=== PATIENT | male | born 1965 | race Caucasian/White ===

== ENCOUNTER → 2018-11-01 | Day surgery (SDC) | payer OTHER ==
[~2018-11-01] VITALS: Ht 177.8 cm; Wt 96.6 kg
[~2018-11-01] MED LIST: CRESTOR10 MG PO; DEXAMETHASONE SOD PHOS INJ 4 MG/ML VIAL ONE; FENOFIBRATE134 MG PO; FENTANYL CITRATE/PF 100MCG/2 ML INJ ONE; IOPAMIDOL 610MG/1ML 300 MG/ML VIAL IV ONE; LIDOCAINE HCL 2% LOCAL INJ 5 ML SDV VIAL INJ ONE; METFORMIN HCL500 M2 PO; MIDAZOLAM HCL 2 MG/2 ML VIAL ONE; MORPHINE SULFATE 2 MG/ML SYR 1ML IV PRN; MORPHINE SULFATE 2 MG/ML SYR 1ML IV STA; MORPHINE SULFATE INJ 4 MG/ML INJ 1ML IV ONE; MORPHINE SULFATE INJ 4 MG/ML INJ 1ML IV PRN; ONDANSETRON HCL INJ 2MG/ML 2ML 2 MG/ML VIAL IV ONE; ONDANSETRON HCL INJ 2MG/ML 2ML 2 MG/ML VIAL IV PRN; ONDANSETRON HCL INJ 2MG/ML 2ML 2 MG/ML VIAL ONE; PROPOFOL IV EMULSION 10 MG/ML 20 ML VIAL ONE; SODIUM CHLORIDE 0.9% 1000ML 1,000 ML IV ONE
--- OUTSIDE RECORDS SUMMARY | 2018-11-01 14:31 | XMS REPORT | Summary of Care ---
Author Author [facility] Organization [facility] Address Unknown Phone Unavailable Encounter HQ Rubia(TONY) [id number] Date(s): 02/17/15 - 02/17/15 [facility] [address] [place] [address]- [phone] Discharge Disposition: Home Attending Physician: Tadeo Osborn MD Referring Physician: Tadeo Osborn MD Vital Signs 1 2 3 Most recent to oldest [Reference Range]: 177.8 cm (02/10/15 2:06 PM) Height 1 2 3 Most recent to oldest [Reference Range]: 98.1 DegF (02/10/15 2:06 PM) Temperature Oral [96.4-99.1 DegF] 1 2 3 Most recent to oldest [Reference Range]: 120/77 mmHg (02/17/15 3:45 PM) 119/77 mmHg (02/17/15 3:30 PM) 120/78 mmHg (02/17/15 3:15 PM) Blood Pressure [90-140/60-90 mmHg] 1 2 3 Most recent to oldest [Reference Range]: 18 BRMIN (02/17/15 3:45 PM) 18 BRMIN (02/17/15 3:30 PM) 18 BRMIN (02/17/15 3:15 PM) Respiratory Rate [14-20 BRMIN] 1 2 3 Most recent to oldest [Reference Range]: 79 bpm (02/10/15 2:06 PM) Peripheral Pulse Rate [60-100 bpm] 1 2 3 Most recent to oldest [Reference Range]: 102.415 kg (02/10/15 2:06 PM) Weight 1 2 3 Most recent to oldest [Reference Range]: 32.4 m2 (02/10/15 2:06 PM) Body Mass Index Problem List Condition Effective Dates Status Health Status Informant Diabetes(Confirmed) Active Hyperlipidemia(Confi Active rmed) Obesity(Confirmed) Active Allergies, Adverse Reactions, Alerts Substance Reaction Severity Status NKDA Active Medications aspirin 81 mg tablet, enteric coated 81 mg=1 tab, PO, Daily, # 90 tab, 3 Refill(s) Start Date: 02/10/15 Status: Ordered Exparel 20 mL, Route: InFILtration(local), Drug Form: INJ, Dosing Weight 102.415, kg, 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, For Hemorrhoidectomy, Start date: 02/17/15 7:00:00, Duration: 30 day, Stop date: 03/19/15 5:59:00 Notes: (Same as: Exparel) NOT FOR IV use Postoperative analgesia: Infi ltration (local): Dose is based on surgical site and volume required to cover th e area (in general, the maximum total dose is 266 mg).Bunionectomy: 7 mL into th e tissues surrounding the osteotomy and 1 mL into the subcutaneous tissue of the surgical site (total dose=8 mL [106 mg])Hemorrhoidectomy: 30 mL (20 mL vial dil uted with 10 mL NS) divided and administered as 6 injections of 5 mL each (total dose=30 mL [266 mg]) Start Date: 02/17/15 Stop Date: 02/18/15 Status: Discontinued ketOROLAC 10 mg oral tablet 10 mg=1 tab, PO, Q6H, PRN Pain, # 20 tab, 0 Refill(s), Pharmacy: [facility] [id number] Start Date: 02/17/15 Stop Date: 02/22/15 Status: Ordered Lactated Ringers Injection IV 500 mL 500 mL, Rate: 20 ml/hr, Infuse over: 25 hr, Route: IV, Dosing Weight 102.415 kg, Total Volume: 500, Start date: 02/17/15 10:09:00, Duration: 30 day, Stop date: 03/19/15 10:08:00 Start Date: 02/17/15 Stop Date: 02/18/15 Status: Discontinued Tylenol with Codeine #3 oral tablet 1 tab, PO, Q6H, PRN for pain, # 30 tab, 0 Refill(s) Start Date: 02/17/15 Stop Date: 02/27/15 Status: Ordered Results ELECTROLYTES Most recent to 1 oldest [Reference Range]: Sodium Lvl [135-145 136 mEq/L mEq/L] (02/10/15 2:37 PM) Potassium Lvl 3.7 mEq/L [3.5-5.1 mEq/L] (02/10/15 2:37 PM) Chloride Lvl [95-109 105 mEq/L mEq/L] (02/10/15 2:37 PM) CO2 [24-32 mEq/L] 27 mEq/L (02/10/15 2:37 PM) AGAP [10.0-20.0 7.7 mEq/L mEq/L] *LOW* (02/10/15 2:37 PM) CHEM PANEL Most recent to 1 oldest [Reference Range]: Creatinine Lvl 1.4 mg/dL [0.5-1.4 mg/dL] (02/10/15 2:37 PM) eGFR 58 mL/min/1.73m2 1 *NA* (02/10/15 2:37 PM) BUN [7-22 mg/dL] 18 mg/dL (02/10/15 2:37 PM) B/C Ratio [6-25] 13 (02/10/15 2:37 PM) Glucose Lvl [70-99 145 mg/dL mg/dL] *HI* (02/10/15 2:37 PM) Total Protein 7.3 g/dL [6.4-8.4 g/dL] (02/10/15 2:37 PM) Albumin Lvl [3.5-5.0 4.0 g/dL g/dL] (02/10/15 2:37 PM) Globulin [2.0-4.0 3.3 g/dL g/dL] (02/10/15 2:37 PM) A/G Ratio [0.7-1.6] 1.2 (02/10/15 2:37 PM) Calcium Lvl 8.7 mg/dL [8.5-10.5 mg/dL] (02/10/15 2:37 PM) ALT [0-65 unit/L] 70 unit/L *HI* (02/10/15 2:37 PM) AST [0-37 unit/L] 24 unit/L (02/10/15 2:37 PM) Alk Phos [39-136 55 unit/L unit/L] (02/10/15 2:37 PM) Bili Total [0.2-1.3 0.5 mg/dL mg/dL] (02/10/15 2:37 PM) 1Result Comment: The eGFR is calculated using the CKD-EPI formula. In most young, healthy individuals the eGFR will be >90 mL/min/1.73m2. The eGFR declines with age. An eGFR of 60-89 may be normal in some populations, particularly the elderly, for whom the CKD-EPI formula has not been extensively validated. Use of the eGFR is not recommended in the following populations: Individuals with unstable creatinine concentrations, including patients and those with serious co-morbid conditions. Patients with extremes in muscle mass or diet. The data above are obtained from the National Kidney Disease Education Program ( NKDEP) which additionally recommends that when the eGFR is used in patients with extremes of body mass index for purposes of drug dosing, the eGFR should be mul tiplied by the estimated BMI. HEMATOLOGY Most recent to 1 oldest [Reference Range]: Hgb [14.0-18.0 g/dL] 14.6 g/dL (02/10/15 2:37 PM) Hct [42.0-54.0 %] 42.4 % (02/10/15 2:37 PM) Immunizations No data available for this section Procedures Procedure Date Related Diagnosis Body Site Vasectomy Social History Social History Type Response Alcohol Current, Type Beer. Frequency: 1-2 times per week. Smoking Status Never smoker; Exposure to Tobacco Smoke None; Cigarette Smoking Last 365 Days No; Reg Smoking Cessation Counseling No Assessment and Plan Extracted from: Title: Clinical Document Author: Tadeo Osborn MD Date: 02/17/15 PREOPERATIVE DIAGNOSIS: Grade III internal and external hemorrhoid with skin tags, screening for colon cancer. POSTOPERATIVE DIAGNOSIS: Grade III internal and external hemorrhoid with skin tags, screening for colon cancer. PROCEDURE Excisional Hemorrhoidectomy with excision of skin tags x2 Colonoscopy with hot forcepts polypectomy x 2 SURGEON: Dr. Osborn SLEEVE TAILOR: None ANESTHESIA: General IV FLUIDS: 300 mL URINE OUTPUT: No Blair. ESTIMATED BLOOD LOSS: 30 cc COMPLICATIONS: None FINDINGS: Grade III internal hemorrhoids at right posterior and left lateral sites with 3cm skin tags. 5mm Cecal and 8mm proximal transverse colon polyps- hot forcepts polypectomy. DISPOSITION: Tolerated the procedure well, extubated in the operating room and transferred to postop anesthesia care unit in stable hemodynamic condition. COUNTS: Needle, sponge and correct x 2. INDICATIONS FOR PROCEDURE: The patient is a 49-year-old man who presents for excisional hemorrhoidectomy and exicsion of skin tags and screening colonoscop. Risks include but not limited to pain, bleeding infection, non healing wound, fissure, fistula, abscess, incontinence, disfiguring scar, recurrence of condition, need for further procedures and surgeries and perioperative risks. Informed consent was obtained. All questions were answered to his satisfaction. PROCEDURE IN DETAIL: Please see attached separate colonoscopy report. The patient was brought to the operating room, placed on the table in supine position. General endotracheal anesthesia was induced successfully. Following completion of the colonoscopy the patient was placed on candy canes in the lithotomy position and the perineum was prepped and draped in the usual standard sterile fashion. Using a Hill Nathan retractor we identified Grade III internal hemorrhoids at right posterior and left lateral sites with 3cm skin tags with minor bleeding. Secondary to the size of the internal hemorrhoids which were confluent with the large skin tags we ellected to perform excisional hemorrhoidectomy along with excision of the skin tags in each site. We first addressed the left lateral internal hemorrhoid and the skin tag and we used a #15 blade and performed a elliptical incision over the hemorrhoid and the skin tag and dissected in a sharp fashion the hemorrhoid over the internal and external sphincter muscle fibers without dividing any sphincter muscle. He placed a hemostat at the hemorrhoidal vascular pedical at 3cm above the dentate line and divided the hemorrhoid and passed to pathology. We then placed a 2-0 Vicryl in a figure of eight fashion and ligated the hemorrhodal vascular pedicle. We then ran a 3-0 Chromic and approximated the anodermal skin edges under no tension using a large size Hill Nathan retractor prevending stenosis and in a hemostatic fashion. We then addressed the right posterior hemorrhoid and skin tag and we performed the same procedure using large size Hill Nathan retractor in order to avoid anal stenosis and confirmed complete hemostasis of each hemorrhoidectomy site. Surgicel was left in place. One vial of Exparel was injected for local anesthesia. The Exparel was diluted with 10 mL of normal saline. The procedure was completed. Surgicel was left in place. Extracted from: Title: Clinical Document Author: Tadeo Osborn MD Date: 02/17/15 [facility] OFFICE CONSULTATION NOTE: TADEO Rojas MD, FACS, FASCRS CC: colonoscopy screening & skin tags HPI: The patient is a 49 year old male self-referred for surgical consultation for colonoscopy screening. Denies constipation, diarrhea, change in bowel habits, abnormal weight loss, family hx CRC. The pt has never had a colonoscopy. He does report a hx of pain after a BM and he now feels he has an area that feels like "cauliflower" which causes excessive cleaning and wiping ROS: General: Denies chills, fever, weight loss, weight gain, loss of appetite Eyes: Denies vision loss, retina problems Ears/Nose/Throat: Denies ringing in ears, hearing problems, congestion, dental problems, hoarseness, difficulty swallowing, recent sore throat Cardiovascular: Denies irregular heartbeat, chest pain, heart murmur, abnormal heart valve Pulmonary: Denies productive cough with sputum, shortness of breath, wheezing Genitourinary: Denies frequent urination, blood in urine, urinary incontinence, difficulty urinating, pneumaturia, fecaluria, vaginal discharge Abdominal/GI: Denies nausea/vomiting, diarrhea, constipation, indigestion, abdominal pain, bloody or dark stools, incontinence of stool, mucus with stools Musculoskeletal: Denies back pain, joint pain, joint swelling Skin: Denies skin rashes, skin itching Neurologic: Denies numbness, weakness, headaches, memory loss, seizures, fainting/blackouts, migraines Psychiatric: Denies anxiety, depression, suicidal thoughts Endocrine: Denies heat/cold intolerance, excessive hunger, excessive thirst, excessive urination, hormonal abnormalities Liver: Denies jaundice Hematologic/Lymphatic: Denies abnormal bleeding, abnormal bruising, enlarged lymph glands PMH: No qualifying data available Vasectomy Alcohol Details: Current, Type Beer. Frequency: 1-2 times per week. Tobacco Details: Use: Never smoker. Tobacco smoke exposure: None. Did the Patient Smoke Cigarettes Anytime During the Last 365 Days? No. Cessation Counseling Provided? No. No qualifying data available Allergies: NKDA MEDICATIONS: Medication List Active Medications Ordered fenofibrate: 130 mg, 1 cap, PO, Daily, 30 cap, 0 Refill(s). metFORMIN: 1,000 mg, 2 tab, PO, Daily, take with a meal, 30 tab, 1 Refill(s). rosuvastatin: 10 mg, 1 tab, PO, Bedtime, 30 tab, 0 Refill(s). Medications Inactivated in the Last 72 Hours No medications found. VitalsTmp(F)[id number] 01/21 10:1198.800981/93-------- 24 Hr Tmax: No Data AvailableVital Signs are the last 5 in the past 48 hours. LABS: No qualifying data available.No qualifying data available.No qualifying data available. PHYSICAL EXAM: General Appearance: Well appearing, well developed, well nourished, well hydrated, good color, and in no acute distress Head: Normocephalic atraumatic Eyes: Pupils equal/round/reactive to light, no scleral icterus, extraocular movements intact, no erythema, no discharge, normal RR, alignment within normal limits Ears: Normal external shape, normal position, normal tympanic membranes, tympanic membranes flat, and normal landmarks Nose: Nares patent and no discharge Mouth: Moist mucous membranes, tongue normal, gingiva normal, palate normal, tonsils normal Neck: Supple, FROM, no thyromegaly, no masses, no cervical lymphadenopathy Chest Wall: No retractions Lungs: CTA bilaterally, no wheezes/rales/rhonchi, and good air entry Heart: Regular rate and regular rhythm, no murmur Abdomen: soft, non-tender, non-distended, no HSM, and no mass Musculoskeletal: No obvious deformity. Moves all 4 extremities, stable gait. Lymph: No cervical, axillary or inguinal lymphadenopathy Extremities: Symmetric, no obvious defect, and no cyanosis/clubbing/edema. 2+ pulses in DP/PT/radial bilaterally Neurologic: Alert/appropriate, normal strength, normal tone, and CN II-XII grossly intact. Clear speech, aao x 3. Skin: No nevus no lesions no rash. No jaundice. Psych: Mood congruent affect, responds appropriately to questions. Anorectal: Digital rectal exam reveals normal sphincter tone and normal squeeze tone. Inspection and anoscopy reveals a left lateral 3cm skin tag x2 and a left lateral grade III internal hemorrhoid.. No polyps, no mass. Normal internal hemorrhoids in all sites. No fistula, no fissure. No abscess. Rigid proctoscopy reveals normal rectum up to the rectosigmoid junction. No proctitis, No mass, No polyps or bleeding. No mucusy drainage. Brown stool in vault. Secondary to limited visualization by stool, smaller lesions may not be seen at this time. ASSESSMENT & PLAN: recommend to proceed with colonoscopy w/ MAC as they have not had a colonoscopy screening in the past as well as excision of skin tags and hemorrhoidectomy. We had a thorough discussion regarding the colonoscopy procedure. The risks, benefits, and alternatives of the procedure were discussed in detail. Some of the risks discussed included, but were not limited to bleeding, infection, and perforation. The statistical data reviewed included the report of approximately 1 in 1000 cases of perforation and 3 in 1000 cases of bleeding. The importance of cessation of aspirin use or any other blood thinner was also discussed. In addition the colonoscopy prep was reviewed and a copy of the preparation handout was given. All questions were answered to the patient's satisfaction and the patient agrees to proceed. total exam time spent in coordination of care, education, and physical exam >40 minutes Diagnosis: Hemorrhoids that prolapse with straining and require manual replacement back inside anal canal Comment: Diagnosis: Screening for colon cancer Comment: Diagnosis: Skin tag of anus Comment:
--- OUTSIDE RECORDS SUMMARY | 2018-11-01 14:31 | XMS REPORT | Encounter Summary ---
Author Organization Unknown Address [address] [place] [address] Phone [phone] Care Team Providers Care Artificial Glass Eye Maker Name Role Phone Shaheen Hinton MD 3 [phone] Reason for Visit Medical Complaint Instructions 1. Furuncle mupirocin 2 % topical ointment clindamycin HCl 300 mg capsule 2. Essential hypertension high blood pressure: care instructions 3. Hyperlipidemia high cholesterol: care instructions 4. Prediabetes 5. Body mass index 30+ - obesity body mass index: care instructions Discussion Note Pt is in NAD; Verbalizes understanding of all instructions with no questions at this time. Plan of Care Patient Instructions Keep area clean and dry. Clean with soap and water twice a day, pat dry and apply antibiotic ointment as directed. Take antibiotics as directed. Take medications as prescribed. Follow up with your PCP within 2-3 days if symptoms worsen as discussed. In case of emergency: worsening swelling or redness, tingling/numbness/loss of sensation and purple discoloration call 911 or go to nearest ER. Recommend follow a low sodium/fat/carb diet and exercise 30-45 mins/d 3-4 days a week once symptoms resolve. Recommend monitor BP at home and document, bring BP log to PCP for review. Reminders Provider Appointments None recorded. Lab None recorded. Referral None recorded. Procedures None recorded. Surgeries None recorded. Imaging None recorded. Medications Name Start Date clindamycin HCl 300 mg capsule Take 1 capsule every 12 hours by oral route as directed for 7 days. fenofibrate micronized 130 mg capsule losartan 25 mg tablet metformin ER 500 mg tablet,extended release 24 hr mometasone 50 mcg/actuation nasal spray montelukast 10 mg tablet mupirocin 2 % topical ointment APPLY A SMALL AMOUNT TO THE AFFECTED AREA BY TOPICAL ROUTE 2 TIMES PER DAY X 7 DAYS rosuvastatin 20 mg tablet Medications Administered None recorded. Vitals Height Weight BMI Blood Pressure 5 ft 10 in 215 lbs 30.8 kg/m2 128/86 mm[Hg] Lab Results None recorded. Allergies Code Code System Name Reaction Severity Status Onset NKDA Problems Name Status Onset Date Source Hyperlipidemia Active 01/07/2018 Body Mass Index 30+ - Obesity Active 01/07/2018 Essential Hypertension Active 01/07/2018 Furuncle Active 01/07/2018 Prediabetes Active 01/07/2018 Procedures Date Name Performed by Removal of Sperm Duct(s) Information not available Vaccine List None recorded. Social History Smoking Status Never Smoker Past Encounters 01/07/2018 Furuncle; Essential Hypertension; Hyperlipidemia; Prediabetes; Body Mass Index 30+ - Obesity Sherrill Lucero, [facility] [address] [facility] [place] [address], Ph. History of Present Illness Liyv-Unuqcol-Rhroa-Skin Lesion-Bite 1 Reported By: Patient HPI: Location: face. Quality: not itchy, painful, tender, red, single, localized, swollen. Severity: worsening, moderate. Duration: has noted for <1 week. Onset/Timing: gradual onset. Context: no new detergents or skin products, no one else with similar rash, no sting or bite. Aggravating factors: nothing makes it worse. Alleviating factors: nothing gives relief. Associated Symptoms: no fever/chills, no muscle aches, no headache, no cold symptoms, no nausea, no vomiting, no diarrhea, no urinary symptoms Review of Systems Basic Reported By: Patient Constitutional: Constitutional: no fever Eyes: Eyes: no eye complaints Pccs-Ikfn-Piewa-Throat: Ears: no ear complaints. Nose: no nose/sinus problems. Mouth/Throat: no sore throat, no bleeding gums, no mouth complaints, no teeth problems Cardiovascular: Cardiovascular: no chest pain, no shortness of breath, no known heart murmur Respiratory: Respiratory: no cough, no wheezing, no shortness of breath Gastrointestinal: Gastrointestinal: no abdominal pain, no vomiting / diarrhea Genitourinary: Genitourinary: no urinary complaints, no discharge Musculoskeletal: Musculoskeletal: no muscle aches, no muscle weakness, no arthralgias/joint pain, no back pain Skin: Skin: no abnormal / changing mole, no jaundice, no rashes, growths/lesions Neurologic: Neurologic: no loss of consciousness, no weakness, no numbness, no seizures, no dizziness, no headaches Physical Exam Adult Basic, Adult Male Complete Reported By: Patient Constitutional: General Appearance: obese. Level of Distress: NAD. Ambulation: ambulating normally Psychiatric: Mental Status: active and alert. Orientation: to time, to place, to person Eyes: Lids and Conjunctivae: non-injected, no discharge, no pallor Lic-Otww-Ekpsk-Throat: Ears: no lesions on external ear, no outer ear tenderness, EACs clear, TMs clear. Hearing: no hearing loss. Nose: no lesions on external nose, nares patent, no septal deviation, nasal passages clear, no sinus tenderness, no nasal discharge. Lips, Teeth, and Gums: no mouth or lip ulcers, no bleeding gums, normal dentition; localized erythematous and edematous papular lesion on philtrum x 5-6 days. Lesion is warm and tender to the touch. Blanching observed. Cap refill < 3 secs. No drainage. Oropharynx: moist mucous membranes, no erythema, no exudates, tonsils not enlarged Neck: Neck: supple. Lymph Nodes: no cervical LAD Lungs: Respiratory effort: no dyspnea, no tachypnea, no use of accessory muscles, no intercostal retractions. Auscultation: breath sounds normal, good air movement Cardiovascular: Heart Auscultation: RRR, no murmurs Neurologic: Gait and Station: normal gait, normal station Skin: Inspection and palpation: no rash, no ulcer, no abnormal nevi, no induration, no nodules, good turgor, no jaundice, lesion
--- OUTSIDE RECORDS SUMMARY | 2018-11-01 14:31 | XMS REPORT ---
Author Author [facility] Address Unknown Phone Unavailable Care Team Providers Care Iuss Master Analyst Name Role Phone Unavailable Unavailable Payers Payer Name Policy Type Policy Number Effective Date Expiration Date Problems This patient has no known problems. Allergies, Adverse Reactions, Alerts This patient has no known allergies or adverse reactions. Medications This patient has no known medications.
--- OUTSIDE RECORDS SUMMARY | 2018-11-01 14:31 | XMS REPORT | Continuity of Care Document ---
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 Name Role Phone Novadiol Unavailable Unavailable Problems Problem Status Onset Date Classification Date Reported Comments Source Body mass index 30+ - obesity 01/07/2018 Diagnosis 01/07/2018 [facility] Essential hypertension 01/07/2018 Diagnosis 01/07/2018 [facility] Hyperlipidemia 01/07/2018 Problem 01/07/2018 [facility] Body Mass Index 30+ - Obesity 01/07/2018 Problem 01/07/2018 [facility] Essential Hypertension 01/07/2018 Problem 01/07/2018 [facility] Furuncle 01/07/2018 Problem 01/07/2018 [facility] Prediabetes 01/07/2018 Problem 01/07/2018 [facility] HEMORRHOIDECTOMY DS 10/14 Active 01/28/2015 [facility] HEMORRHOIDECTOMY DS 10/14, Active 01/28/2015 [facility] HEMORRHOIDECTOMY DS 14, V12.11 Active 01/28/2015 [facility] HEMORRHOIDECTOMY DS 14, Z12.11 Active 01/28/2015 [facility] Diabetes Active Problem 02/20/2015 [facility] Obesity Active Problem 02/20/2015 [facility] OTHER HEMORRHOIDS Active [facility] RESIDUAL HEMORRHOIDAL SKIN TAGS Active [facility] ENCOUNTER FOR SCREENING FOR MALIGNANT NE Active [facility] Medications Medication Details Route Status Patient Instructions Ordering Provider Order Date Source Acetaminophen 300 MG / Codeine Phosphate 30 MG Oral Tablet [Tylenol with Codeine #3] 1 tab, PO, Q6H, PRN for pain, # 30 tab, 0 Refill(s) Active 02/17/2015 [facility] Ketorolac Tromethamine 10 MG Oral Tablet 10 mg=1 tab, PO, Q6H, PRN Pain, # 20 tab, 0 Refill(s), Pharmacy: [facility] [id number] Active 02/17/2015 [facility] Calcium Chloride 0.0014 MEQ/ML / Potassium Chloride 0.004 MEQ/ML / Sodium Chloride 0.103 MEQ/ML / Sodium Lactate 0.028 MEQ/ML Injectable Solution 500 mL, Rate: 20 ml/hr, Infuse over: 25 hr, Route: IV, Dosing Weight 102.415 kg, Total Volume: 500, Start date: 02/17/15 10:09:00, Duration: 30 day, Stop date: 03/19/15 10:08:00 No Longer Active 02/17/2015 [facility] Exparel 20 mL, Route: InFILtration(local), Drug Form: INJ, Dosing Weight 102.415, kg, ONCALL, For Hemorrhoidectomy, Start date: 02/17/15 7:00:00, Duration: 30 day, Stop date: 03/19/15 5:59:00Notes: (Same as: Exparel) NOT FOR IV use Postoperative analgesia: Infiltration (local): Dose is based on surgical site and volume required to cover the area (in general, the maximum total dose is 266 mg). Bunionectomy: 7 mL into the tissues surrounding the osteotomy and 1 mL into the subcutaneous tissue of the surgical site (total dose=8 mL [106 mg]) Hemorrhoidectomy: 30 mL (20 mL vial diluted with 10 mL NS) d ivided and administered as 6 injections of 5 mL each (total dose=30 mL [266 mg]) No Longer Active 02/17/2015 [facility] Aspirin 81 MG Enteric Coated Tablet 81 mg=1 tab, PO, Daily, # 90 tab, 3 Refill(s) Active 02/10/2015 [facility] Clindamycin 300 MG Oral Capsule clindamycin HCl 300 mg capsule Take 1 capsule every 12 hours by oral route as directed for 7 days. Active [facility] Fenofibrate 130 MG Oral Capsule fenofibrate micronized 130 mg capsule Active [facility] Losartan Potassium 25 MG Oral Tablet losartan 25 mg tablet Active [facility] 24 HR Metformin hydrochloride 500 MG Extended Release Oral Tablet metformin ER 500 mg tablet,extended release 24 hr Active [facility] mometasone furoate 0.05 MG/ACTUAT Metered Dose Nasal [place] mometasone 50 mcg/actuation nasal spray Active [facility] montelukast 10 MG Oral Tablet montelukast 10 mg tablet Active [facility] Mupirocin 0.02 MG/MG Topical Ointment mupirocin 2 % topical ointment APPLY A SMALL AMOUNT TO THE AFFECTED AREA BY TOPICAL ROUTE 2 TIMES PER DAY X 7 DAYS Active [facility] Rosuvastatin calcium 20 MG Oral Tablet rosuvastatin 20 mg tablet Active [facility] Allergies, Adverse Reactions, Alerts No Known Medication Allergies Immunizations No Data Provided for This Section Results Order Name Results Value Reference Range Date Interpretation Comments Source ELECTROLYTES AGAP 7.7 10.0 - 20.0 02/10/2015 [facility] ELECTROLYTES B/C Ratio 13 6 - 25 02/10/2015 [facility] ELECTROLYTES Globulin 3.3 2.0 - 4.0 02/10/2015 [facility] ELECTROLYTES A/G Ratio 1.2 0.7 - 1.6 02/10/2015 [facility] ELECTROLYTES AST 24 0 - 37 02/10/2015 [facility] ELECTROLYTES Bili Total 0.5 0.2 - 1.3 02/10/2015 [facility] ELECTROLYTES Total Protein 7.3 6.4 - 8.4 02/10/2015 [facility] ELECTROLYTES Alk Phos 55 39 - 136 02/10/2015 [facility] ELECTROLYTES Albumin Lvl 4.0 3.5 - 5.0 02/10/2015 [facility] ELECTROLYTES ALT 70 0 - 65 02/10/2015 [facility] ELECTROLYTES Glucose Lvl 145 70 - 99 02/10/2015 [facility] ELECTROLYTES BUN 18 7 - 22 02/10/2015 [facility] ELECTROLYTES CO2 27 24 - 32 02/10/2015 [facility] ELECTROLYTES eGFR 58 02/10/2015 Result Comment: The eGFR is calculated using the [...] from the National Kidney Disease Education Program (NKDEP) which additionally recommends that when the eGFR is used in patients with extremes of body mass index for purposes of drug dosing, the eGFR should be multiplied by the estimated BMI. [facility] ELECTROLYTES Calcium Lvl 8.7 8.5 - 10.5 02/10/2015 [facility] ELECTROLYTES Sodium Lvl 136 135 - 145 02/10/2015 [facility] ELECTROLYTES Creatinine Lvl 1.4 0.5 - 1.4 02/10/2015 [facility] ELECTROLYTES Potassium Lvl 3.7 3.5 - 5.1 02/10/2015 [facility] ELECTROLYTES Chloride Lvl 105 95 - 109 02/10/2015 [facility] HEMATOLOGY Hct 42.4 42.0 - 54.0 02/10/2015 [facility] HEMATOLOGY Hgb 14.6 14.0 - 18.0 02/10/2015 [facility] Pathology Reports No Data Provided for This Section Diagnostic Reports No Data Provided for This Section Consultation Notes No Data Provided for This Section Discharge Summaries No Data Provided for This Section History and Physicals No Data Provided for This Section Vital Signs Vital Sign Value Date Comments Source Diastolic (mm Hg) 86 01/07/2018 [facility] Height 70 01/07/2018 [facility] Systolic (mm Hg) 128 [facility] Systolic (mm Hg) 120 02/17/2015 [facility] Diastolic (mm Hg) 77 02/17/2015 [facility] Respitory Rate 18 02/17/2015 [facility] Systolic (mm Hg) 119 02/17/2015 [facility] Diastolic (mm Hg) 77 02/17/2015 [facility] Respitory Rate 18 02/17/2015 [facility] Respitory Rate 18 02/17/2015 [facility] Systolic (mm Hg) 120 02/17/2015 [facility] Diastolic (mm Hg) 78 02/17/2015 [facility] Heart Rate 79 02/10/2015 [facility] Temperature Oral (F) 98.1 F 02/10/2015 [facility] Height 177.8 cm 02/10/2015 [facility] Weight 102.415 02/10/2015 [facility] BMI Calculated 32.4 02/10/2015 [facility] Encounters Location Location Details Encounter Type Encounter Number Reason For Visit Attending Provider ADM Date DC Date Status Source Outpatient [id number] THEIVIS RASMUSSEN 02/17/2015 Active [facility] OBS Day Surgery [id number] Theoswaldooros Voloyianzaid 02/17/2015 02/17/2015 [facility] Outpatient [id number] HILDA FERNANDEZ 03/09/2015 Active [facility] - [facility] - [id number] Lehman-C: [address], [place] [address], Ph. [id number] Sherrill Barker 01/07/2018 [facility] Procedures Procedure Code Date Perfomer Comments Source Vasectomy [id number] [facility] Removal of Sperm Duct(s) 52574 [facility] Assessment and Plan No Data Provided for This Section Plan of Care No Data Provided for This Section Social History Social History Date Source Smoking Status Never Smoker 01/07/2018 [facility] Social History TypeResponse Alcohol Current, Type Beer. Frequency: 1-2 times per week. Smoking Status Never smoker; Exposure to Tobacco Smoke None; Cigarette Smoking Last 365 Days No; Reg Smoking Cessation Counseling No 01/21/2015 [facility] Family History No Data Provided for This Section Advance Directives No Data Provided for This Section Functional Status No Data Provided for This Section
--- OUTSIDE RECORDS SUMMARY | 2018-11-01 14:31 | XMS REPORT | Summary of Care ---
Author Author SHANTANU MASON M.D. Organization Unknown Address Unknown Phone Unavailable Care Team Providers Care Manufacturing Maintenance Manager Name Role Phone SHANTANU MASON M.D. 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 * Quantity: 30 Refills: 6 SHANTANU MASON M.D. * Start : 26-Nov-2017 Active Fluticasone Propionate 50 MCG/ACT Nasal Suspension USE 1 SPRAY IN EACH NOSTRIL TWICE DAILY. * Quantity: 1 Refills: 6 SHANTANU MASON M.D. * Start : 26-Nov-2017 Active 9.9 ML Bottle Allergies and Adverse Reactions Name Dates Details No Known Allergies (Allergy) Status: Active Procedures Procedure Dates Details Procedures not documented Immunization Name Dates Details Immunizations not documented Family History Name Dates Details Family history of Diabetes (250.00, E11.9) Status: Active Social History Name Dates Details - Status: Name Dates Details Never smoker Vital Signs Date Test Result Details 06-Was-19700:26 Physical Findings 5 Status: Comments: Recently Traveled Internationally? If Yes Where? Height 70 in Status: Weight 221.5 lb Status: Body Mass Index Calculated 31.78 kg/m2 Status: Body Surface Area Calculated 2.18 m2 Status: Results Date Description Value Details Results not documented Plan of Care Name Dates Details Planned Observations Planned Goals not documented Interventions Provided Medication Changes* Fluticasone Propionate 50 MCG/ACT Nasal Suspension - Start * Omeprazole 20 MG Oral Capsule Delayed Release - Start Plan* 52 yo M with h/o DM, now with dysphonia 2/2 left TVF ulcer, which appears to be healing; also LPR, [place] * - discussed scope findings with him * - counseled him: keep well hydrated, reflux precautions, avoid voice abuse * - omeprazole for now * - fluticasone BID * - RTC 1 month unless worsens Instructions Name Dates Details Instructions not documented Encounters Appointment; SHANTANU MASON M.D. Encounter Diagnosis: Problem not documented On: 26-Nov-2017 8:00
[2018-11-01 15:47] LABS: BILIRUBIN,URINE NEGATIVE (NEGATIVE); CLARITY,URINE CLEAR (CLEAR); COLOR,URINE YELLOW (YELLOW); KETONES,URINE NEGATIVE (NEGATIVE); LEUKOCYTE ESTERASE ,URINE NEGATIVE (NEGATIVE); NITRITE,URINE NEGATIVE (NEGATIVE); PROTEIN,URINE DIPSTICK NEGATIVE (NEGATIVE); URINE UROBILINOGEN 0.2 mg/dL (0.2 - 1)
[2018-11-01 16:00] LABS: BACTERIA,URINE FEW /HPF; EPITHELIAL CELLS,URINE MODERATE /LPF; MUCUS,URINE MODERATE (RARE)
--- OUTSIDE RECORDS SUMMARY | 2018-11-01 17:07 | XMS REPORT | Continuity of Care Document ---
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 Role Phone [employer] Unavailable Unavailable Problems Problem Status Onset Date Classification Date Reported Comments Source Body mass index 30+ - obesity 01/07/2018 Diagnosis 01/07/2018 [facility] Essential hypertension 01/07/2018 Diagnosis 01/07/2018 [facility] Hyperlipidemia 01/07/2018 Problem 01/07/2018 [facility] Body Mass Index 30+ - Obesity 01/07/2018 Problem 01/07/2018 [facility] Essential Hypertension 01/07/2018 Problem 01/07/2018 [facility] Furuncle 01/07/2018 Problem 01/07/2018 [facility] Prediabetes 01/07/2018 Problem 01/07/2018 [facility] HEMORRHOIDECTOMY DS 10/14 Active 01/28/2015 [facility] HEMORRHOIDECTOMY DS 10/14, Active 01/28/2015 [facility] HEMORRHOIDECTOMY DS 14, V12.11 Active 01/28/2015 [facility] HEMORRHOIDECTOMY DS 14, Z12.11 Active 01/28/2015 [facility] Diabetes Active Problem 02/20/2015 [facility] Obesity Active Problem 02/20/2015 [facility] OTHER HEMORRHOIDS Active [facility] RESIDUAL HEMORRHOIDAL SKIN TAGS Active [facility] ENCOUNTER FOR SCREENING FOR MALIGNANT NE Active [facility] Medications Medication Details Route Status Patient Instructions Ordering Provider Order Date Source Acetaminophen 300 MG / Codeine Phosphate 30 MG Oral Tablet [Tylenol with Codeine #3] 1 tab, PO, Q6H, PRN for pain, # 30 tab, 0 Refill(s) Active 02/17/2015 [facility] Ketorolac Tromethamine 10 MG Oral Tablet 10 mg=1 tab, PO, Q6H, PRN Pain, # 20 tab, 0 Refill(s), Pharmacy: [facility] [id number] Active 02/17/2015 [facility] Calcium Chloride 0.0014 MEQ/ML / Potassium Chloride 0.004 MEQ/ML / Sodium Chloride 0.103 MEQ/ML / Sodium Lactate 0.028 MEQ/ML Injectable Solution 500 mL, Rate: 20 ml/hr, Infuse over: 25 hr, Route: IV, Dosing Weight 102.415 kg, Total Volume: 500, Start date: 02/17/15 10:09:00, Duration: 30 day, Stop date: 03/19/15 10:08:00 No Longer Active 02/17/2015 [facility] Exparel 20 mL, Route: InFILtration(local), Drug Form: [...] mL [266 mg]) No Longer Active 02/17/2015 [facility] Aspirin 81 MG Enteric Coated Tablet 81 mg=1 tab, PO, Daily, # 90 tab, 3 Refill(s) Active 02/10/2015 [facility] Clindamycin 300 MG Oral Capsule clindamycin HCl [...] mometasone furoate 0.05 MG/ACTUAT Metered Dose Nasal [place] mometasone 50 mcg/actuation nasal spray Active [facility] [...] ELECTROLYTES AGAP 7.7 10.0 - 20.0 02/10/2015 [facility] ELECTROLYTES B/C Ratio 13 6 - 25 02/10/2015 [facility] ELECTROLYTES Globulin 3.3 2.0 - 4.0 02/10/2015 [facility] ELECTROLYTES A/G Ratio 1.2 0.7 - 1.6 02/10/2015 [facility] ELECTROLYTES AST 24 0 - 37 02/10/2015 [facility] ELECTROLYTES Bili Total 0.5 0.2 - 1.3 02/10/2015 [facility] ELECTROLYTES Total Protein 7.3 6.4 - 8.4 02/10/2015 [facility] ELECTROLYTES Alk Phos 55 39 - 136 02/10/2015 [facility] ELECTROLYTES Albumin Lvl 4.0 3.5 - 5.0 02/10/2015 [facility] ELECTROLYTES ALT 70 0 - 65 02/10/2015 [facility] ELECTROLYTES Glucose Lvl 145 70 - 99 02/10/2015 [facility] ELECTROLYTES BUN 18 7 - 22 02/10/2015 [facility] ELECTROLYTES CO2 27 24 - 32 02/10/2015 [facility] ELECTROLYTES eGFR 58 02/10/2015 Result Comment: The [...] should be multiplied by the estimated BMI. [facility] ELECTROLYTES Calcium Lvl 8.7 8.5 - 10.5 02/10/2015 [facility] ELECTROLYTES Sodium Lvl 136 135 - 145 02/10/2015 [facility] ELECTROLYTES Creatinine Lvl 1.4 0.5 - 1.4 02/10/2015 [facility] ELECTROLYTES Potassium Lvl 3.7 3.5 - 5.1 02/10/2015 [facility] ELECTROLYTES Chloride Lvl 105 95 - 109 02/10/2015 [facility] HEMATOLOGY Hct 42.4 42.0 - 54.0 02/10/2015 [facility] HEMATOLOGY Hgb 14.6 14.0 - 18.0 02/10/2015 [facility] Pathology Reports No Data Provided for This [...] 01/07/2018 [facility] Systolic (mm Hg) 128 [facility]07[facility] 215 [facility] Systolic (mm Hg) 120 02/17/2015 [facility] Diastolic (mm Hg) 77 02/17/2015 [facility] Respitory Rate 18 02/17/2015 [facility] Systolic (mm Hg) 119 02/17/2015 [facility] Diastolic (mm Hg) 77 02/17/2015 [facility] Respitory Rate 18 02/17/2015 [facility] Respitory Rate 18 02/17/2015 [facility] Systolic (mm Hg) 120 02/17/2015 [facility] Diastolic (mm Hg) 78 02/17/2015 [facility] Heart Rate 79 02/10/2015 [facility] Temperature Oral (F) 98.1 F 02/10/2015 [facility] Height 177.8 cm 02/10/2015 [facility] Weight 102.415 02/10/2015 [facility] BMI Calculated 32.4 02/10/2015 [facility] Encounters Location Location Details Encounter Type Encounter Number Reason For Visit Attending Provider ADM Date DC Date Status Source Outpatient [id number] THEIVIS RASMUSSEN 02/17/2015 Active [facility] OBS Day Surgery [id number] Theoswaldooros Voloyianzaid 02/17/2015 02/17/2015 [facility] Outpatient [id number] HILDA FERNANDEZ 03/09/2015 Active [facility] - [facility] - [id number] Lehman-C: [address], [place] [address], Ph. [id number] Sherrill Barker 01/07/2018 [facility] Procedures Procedure Code Date Perfomer Comments Source Vasectomy [id number] [facility] Removal of Sperm Duct(s) 09910 [facility] Assessment and Plan No Data Provided [...] No; Reg Smoking Cessation Counseling No 01/21/2015 [facility] Family History No Data Provided for This Section Advance Directives No Data Provided for This Section Functional Status No Data Provided for This Section
[2018-11-01 17:15] LABS: BASOPHILS % 0.3 % (0.0-1.0); EOSINOPHILS % 0.3 % (0.0-6.0); HEMATOCRIT 42.7 % (38.2-49.6); HEMOGLOBIN 15.1 g/dL (14.0-18.0); LYMPHOCYTES # (AUTO) 0.8 (1.0-3.2); LYMPHOCYTES % 7.7 % (18.0-39.1); MEAN CORPUSCULAR HGB CONC 35.4 g/dL (31-35); MEAN CORPUSCULAR VOLUME 84.9 fL (81-99); MONOCYTES # (AUTO) 0.5 (0.2-0.8); MONOCYTES % 4.6 % (4.4-11.3); NEUTROPHILS # (AUTO) 8.5 (2.1-6.9); NEUTROPHILS % 86.6 % (38.7-80.0); PLATELET COUNT 253 x10e3/uL (140-360); RED BLOOD COUNT 5.03 x10e6/uL (4.3-5.7); RED CELL DISTRIBUTION WIDTH 12.2 % (11.7-14.4)
[2018-11-01 17:19] LABS: ALBUMIN 4.8 g/dL (3.5-5.0); ALBUMIN/GLOBULIN RATIO 1.5 (0.8-2.0); CALCIUM 10.2 mg/dL (8.4-10.2); CREATININE, SERUM 1.41 mg/dL (0.72-1.25)
[2018-11-01 18:40] VITALS: BP 160/85
--- NOTE | 2018-11-01 21:51 | Operative Report ---
DATE OF PROCEDURE: 11/01/2018 SURGEON: Lucas Bloom MD PREOPERATIVE DIAGNOSIS: Left distal ureteral calculi. POSTOPERATIVE DIAGNOSIS: Left distal ureteral calculi. OPERATIONS PERFORMED: Cystoscopy, retrograde pyelogram, stone manipulation, balloon dilatation of distal ureter, laser lithotripsy, and rigid ureteroscopy with stone extraction. ANESTHESIOLOGY: Octavio Jackson M.D. ANESTHESIA: General. FINDINGS: Normal urethra. Prostate, high-riding median bar. Bladder, grade 1 trabeculation. Ureteral orifices in normal position. DESCRIPTION OF PROCEDURE: With the patient under satisfactory general anesthesia, the patient was placed in the supine position on the operating table. Legs were placed on stirrups. Genitalia were then prepped with Betadine soap and solution and draped in the usual manner. A 22-Bolivian cystourethroscope was passed per urethra with a 12-degree angle lens and it was noted that there was a very high-riding median bar of the prostate. Grade 1 trabeculation was seen. Using a #8 cone-tipped ureteral catheter, contrast media was injected retrograde up to the right ureter up to the right kidney with a normal renal pelvis. On the left, it was noted that there was a stone approximately 5 mm at the level of the ureterovesical junction. The intramural portion of the ureter was tight. Above that, it was dilated all the way up to the kidney with an intrarenal pelvis on the left side. At this point, an extra stiff guidewire was introduced without any problems up to the kidney. The stone was manipulated. After that, the ureteroscope rigid in nature was introduced, but it could not be advanced because of a tight intramural portion of the ureter. Before that point, I removed the ureteroscope and replaced it with a balloon 4 cm long. I placed the tip of the balloon at the stone and inflated the intramural portion of the ureter up to 8 atmospheres of pressure. At that point, the balloon was removed and replaced with the rigid ureteroscope. The rigid ureteroscope with the engaged Nitinol basket, the stone was too large to be pulled out, therefore the laser fiber was introduced. Multiple shocks were given to the stone to break into several fragments. The two largest fragments were grasped with a Nitinol basket and removed and sent it for pathological specimen. At this point, the instruments were removed. A 6-Bolivian [employer] double-J was introduced without any difficulty and coiled in the kidney, where the upper pole had a coil and the intrarenal pelvis had another coil because the intrarenal pelvis was tight. At this point, the guidewire was removed. The loop was made in the bladder. Contrast media was injected retrograde, and it was immediately noted there was absolutely no extravasation of the ureter and other double-J was in the appropriate position in the bladder. At this point, the bladder was left full. The patient was taken to recovery in satisfactory condition. DISCHARGE INSTRUCTIONS AND DISCHARGE SUMMARY: The patient met discharge criteria. The patient was sent home. He had urinated already. I spoke with the patient and the in recovery room. My decision was to send him home today. He was totally awake. We discussed pain and when to come back to see me. He was given Tylenol No. 3 to take 1-2 tablets as needed every 4-6 hours and he was given Bactrim DS take one tablet b.i.d. He is to be in my office on Sunday morning to check the urine and see if he would be advisable to remove the double-J on Sunday or wait a couple of more days. They have to call me if there is a problem. MD JUAN Marroquin/JULY /[id number]
--- NOTE | 2018-11-05 08:50 | Diagnostic Imaging Report ---
Study: Fluoroscopic guidance retrograde pyelogram Indication: Ureteral obstruction RADIATION EXPOSURE: Fluoroscopy Time: 00:37min, Dose: 9.83mGy, Dose Area Product (DAP): 350.15 cGycm^2, Number of Spot films: 0 FINDINGS: Fluoroscopic images obtained during retrograde pyelogram show retrograde contrast injection on the right demonstrating patent flow of contrast through the ureter to the right renal collecting system. On the left, retrograde contrast injection demonstrates a filling defect in the distal left ureter, likely a stone, with proximal ureteral dilation. Subsequent images demonstrate balloon ureteroplasty followed by placement of internal nephroureteral stent. Postprocedural images demonstrate stent in place with proximal loop in the left renal pelvis and distal loop in the bladder. IMPRESSION: Retrograde pyelogram showing distal left ureteral stone with proximal ureteral dilation. Successful balloon ureteroplasty follow by placement of internal nephroureteral stent. No ureteral stenosis, stone or obstruction on the right. Signed by: Jan Price MD on 11/05/2018 8:47 AM
== END | disposition home or self-care (01) ==
LOC: ER 14:27 → OR 17:04
PROVIDERS: ATTEND Urology
DX: N20.1 Calculus of ureter (principal); N32.89 Other specified disorders of bladder; E11.9 Type 2 diabetes mellitus without complications; E78.01 Familial hypercholesterolemia; E78.5 Hyperlipidemia, unspecified; I10 Essential (primary) hypertension; Z79.84 Long term (current) use of oral hypoglycemic drugs
CPT/HCPCS: 36415; 52341; 52356; 74420; 80053; 81001; 85025; 87086; 88300; 99284; C1758; C1766; C2625; J1100; J2001; J2250; J2405; J2704; J7030; Q9967; J2270; J3010